=== PATIENT | male | born 1975 | race Caucasian/White ===

== ENCOUNTER 2019-04-16 12:57 | Inpatient (IN) | payer MEDICAID ==
[~2019-04-16] VITALS: Ht 185.4 cm; Wt 120.2 kg
--- NOTE | 2019-04-16 13:29 | NUR ---
PT REPORTS LAST INTAKE OF FOOD 0900 TODAY. PT DRINKING WATER IN TRIAGE. THIS RN ASKED PT TO BECOME NPO UNTIL FURTHER NOTICE.
--- NOTE | 2019-04-16 14:30 | NUR ---
IV SITED WITH BLOOD DRAW INCLUDING BC'S X 2
[2019-04-16 14:36] LABS: BASOPHILS 0.2 % (0-2); EOSINOPHILS 4.9 % (0-7); HEMATOCRIT 40.7 % (42.0-54.0); HEMOGLOBIN 13.6 g/dL (13.5-17.5); IMMATURE GRANULOCYTES 0.2 % (0-5); LYMPHOCYTES 16.1 % (15-50); MCH 29.3 pg (26.0-34.0); MCHC 33.4 g/dL (31.0-37.0); MCV 87.7 fL (80.0-100.0); MEAN PLATELET VOLUME 9.7 fL (7.4-10.4); MONOCYTES 8.8 % (2-11); NEUTROPHILS 69.8 % (40-80); PLATELET COUNT 268 10x3/uL (130-400); RBC 4.64 10x6/uL (4.20-6.10); RDW 13.2 % (11.5-14.5); WBC 12.8 10x3/uL (4.8-10.8)
[2019-04-16 14:45] LABS: INR 1.03 (0.85-1.17)
[2019-04-16 14:54] LABS: ANION GAP 9.1 mmol/L (8-16); CALCIUM 8.4 mg/dL (8.5-10.1); CARBON DIOXIDE 28.3 mmol/L (21.0-32.0); CREATININE - SERUM 1.2 mg/dL (0.6-1.3); POTASSIUM - SERUM 3.4 mmol/L (3.5-5.1)
--- NOTE | 2019-04-16 15:00 | NUR ---
WOUND CX OBTAINED FROM COCCYX ABSCESS, LABELED AT BS AND SENT TO LAB THEN ABXS STARTED
[2019-04-16 15:01] LABS: ALBUMIN 2.9 g/dL (3.4-5.0); BILIRUBIN - TOTAL 0.3 mg/dL (0.2-1.3); PROTEIN - SERUM 7.2 g/dL (6.4-8.2)
[2019-04-16 15:07] LABS: C-REACTIVE PROTEIN 6.6 mg/dL (0.0-0.9); CKMB 0.1 U/L (0.0-3.6); MAGNESIUM - SERUM 1.6 mg/dL (1.8-2.4)
[2019-04-16 15:12] VITALS: BP 130/82
--- NOTE | 2019-04-16 16:00 | NUR ---
DR VICK AT
[2019-04-16 16:16] VITALS: BP 117/66
--- NOTE | 2019-04-16 16:32 | NUR ---
REPORT CALLED TO EDWIN SCHUSTER
--- NOTE | 2019-04-16 17:15 | NUR ---
VANCOMYCIN INFUSION COMPLETED
[2019-04-16 17:20] VITALS: BP 118/64
[2019-04-16 17:28] VITALS: BP 132/71; BMI 35.0
--- NOTE | 2019-04-16 18:01 | NUR ---
NEW PATIENT ADMIT FROM ER TO ROOM 1204. PATIENT TO ROOM VIA WC ACCOMPANIED HOSPITAL STAFF. PATIENT IS AWAKE, ALERT AND ORIENTED X 4. ASSISTED PATIENT TO BED . ADMISSION ASSESSMENT AND HISTORY COMPLETED. PATIENT HAS INFLAMMED PILONIDIAL CYST. ICE PACK APPLIED. 20G IV TO LEFT AC NS INFUSING AT 125 ML. WILL CONTINUE WITH PLAN OF CARE. SR UP X 2 BED IN LOW POSITION AND CALL LIGHT IN REACH.
--- NOTE | 2019-04-16 18:12 | NUR ---
TRANSPORTED TO FLOOR CONDITION STABLE
[2019-04-16 19:32] VITALS: BP 108/53
--- NOTE | 2019-04-16 19:32 | NUR ---
PATIENT RESTING IN BED WITH NO S/S OF DISTRESS AND GUEST AT BEDSIDE. PATIENT DENIES NEEDS AT THIS TIME. VSS. ENCOURAGED THE PATIENT TO CALL IF HE HAS NEEDS. WILL CONTINUE TO MONITOR.
--- NOTE | 2019-04-16 20:19 | NUR ---
PATIENT RESTING IN BED AND REQUESTED PAIN MEDICATION. ADMINISTERED MEDS PER ORDERS. ENCOURAGED THE PATIENT TO CALL IF HE HAS NEEDS. WILL CONTINUE TO MONITOR.
--- NOTE | 2019-04-16 22:19 | NUR ---
ADDED PATIENT TO TELE WAIT LIST. NO MONITORS AVAILABLE AT THIS TIME.
[2019-04-16 23:45] VITALS: BP 103/58
[2019-04-17 03:30] VITALS: BP 110/63
[2019-04-17 06:49] LABS: BASOPHILS 0.3 % (0-2); EOSINOPHILS 6.4 % (0-7); HEMATOCRIT 37.5 % (42.0-54.0); HEMOGLOBIN 12.3 g/dL (13.5-17.5); IMMATURE GRANULOCYTES 0.3 % (0-5); LYMPHOCYTES 21.5 % (15-50); MCH 28.9 pg (26.0-34.0); MCHC 32.8 g/dL (31.0-37.0); MEAN PLATELET VOLUME 9.6 fL (7.4-10.4); MONOCYTES 8.7 % (2-11); NEUTROPHILS 62.8 % (40-80); PLATELET COUNT 227 10x3/uL (130-400); RBC 4.26 10x6/uL (4.20-6.10); RDW 13.3 % (11.5-14.5)
[2019-04-17 07:00] LABS: CALC OSMOLALITY 275 mosm/kg (275-300); CALCIUM 7.5 mg/dL (8.5-10.1); CARBON DIOXIDE 25.8 mmol/L (21.0-32.0); CHLORIDE - SERUM 105 mmol/L (98-107); CREATININE - SERUM 1.1 mg/dL (0.6-1.3); GLUCOSE 92 mg/dL (74-106); MAGNESIUM - SERUM 1.6 mg/dL (1.8-2.4); PHOSPHOROUS 3.4 mg/dL (2.5-4.9); POTASSIUM - SERUM 3.7 mmol/L (3.5-5.1); SODIUM 139 mmol/L (136-145); eGFR NON AFRICAN AMERICAN 78 mL/min (90-120)
[2019-04-17 07:01] LABS: UREA NITROGEN 6 mg/dL (7-18)
[2019-04-17 07:15] VITALS: BP 110/62
--- NOTE | 2019-04-17 07:15 | NUR ---
PT RESTING IN BED, SHIFT ASSESSMENT PERFORMED. VSS AND WNL. DENIES ANY NEEDS AT THIS TIME, WILL CONT TO FOLLOW POC
--- NOTE | 2019-04-17 11:00 | NUR ---
PT COMPLAINING OF PAIN TO COCCYX. PRN MORPHINE GIVEN. PT THEN COMPLAINS THAT MORPHINE IS MAKING HIM FEEL FUNNY AND HE DOES NOT LIKE THE FEELING. PT STATES HE HAS TAKEN ORAL PAIN MEDICATION IN THE PAST AND HAS DONE OK ON IT. PAGED SONIA KERR AND NEW ORDER RECIEVED TO D/C MORPHINE AND GIVE NORCO 5/325MG Q6H FOR PAIN
--- NOTE | 2019-04-17 12:30 | NUR ---
PT RESTING IN BED EATING LUNCH, FAMILY AT BEDSIDE, DENIES ANY NEEDS AT THIS TIME, WILL CONT TO FOLLOW POC
[2019-04-17 13:23] LABS: APPEARANCE CLEAR (CLEAR); BACTERIA FEW /hpf (NEGATIVE); BILIRUBIN NEGATIVE (NEGATIVE); COLOR YELLOW (YELLOW); EPITHELIAL CELLS 0-5 /hpf (0-5); GLUCOSE NEGATIVE (NEGATIVE); KETONE NEGATIVE (NEGATIVE); MUCUS <1+ /lpf (NONE SEEN); NITRITE NEGATIVE (NEGATIVE); PROTEIN NEGATIVE (NEGATIVE); RED CELLS - URINE 0-5 /hpf (0-5); UROBILINOGEN NORMAL (NORMAL); WHITE CELLS - URINE 0-5 /hpf (NEGATIVE)
[2019-04-17 13:24] VITALS: Ht 185.4 cm; Wt 120.2 kg
--- NOTE | 2019-04-17 16:20 | NUR ---
PT RESTING IN BED EATING LUNCH, FAMILY AT BEDSIDE, DENIES ANY NEEDS AT THIS TIME, WILL CONT TO FOLLOW POC
[2019-04-17 18:55] VITALS: BP 103/60
--- NOTE | 2019-04-17 18:55 | NUR ---
PATIENT RESTING IN BED WITH EYES CLOSED AND NO S/S OF DISTRESS. VSS. COMPLETED ASSESSMENT. PATIENT DENIES NEEDS AT THIS TIME. BED IN LOWEST POSITION AND CALL LIGHT WITHIN REACH. ENCOURAGED THE PATIENT TO CALL IF HE HAS NEEDS. WILL CONTINUE TO MONITOR.
--- NOTE | 2019-04-17 20:14 | NUR ---
PATIENT RESTING IN BED WITH NO S/S OF DISTRESS. ADMINISTERED MEDS PER ORDERS. PATIENT DENIES NEEDS. BED IN LOWEST POSITION AND CALL LIGHT WITHIN REACH. ENCOURAGED THE PATIENT TO CALL IF HE HAS NEEDS.
--- NOTE | 2019-04-17 23:03 | NUR ---
RESPONDED TO PATIENT'S CALL LIGHT. PATIENT C/O 9/10 THROBBING PAIN IN HIS HEAD AND PAIN AT SACRUM/COCCYX AREA. ADMINISTERED MEDS PER ORDERS. ALSO GAVE PATIENT JELLO AND A DRINK PER HIS REQUEST. REMINDED PATIENT THAT HE CAN'T HAVE ANYTHING TO EAT OR DRINK AFTER MIDNIGHT. PATIENT VERBALIZED UNDERSTANDING. PATIENT DENIES OTHER NEEDS AT THIS TIME. WILL CONTINUE TO MONITOR.
[2019-04-17 23:05] VITALS: BP 107/69
[2019-04-18 03:38] VITALS: BP 101/63
[2019-04-18 05:57] LABS: BASOPHILS 0.3 % (0-2); EOSINOPHILS 4.5 % (0-7); HEMATOCRIT 35.9 % (42.0-54.0); HEMOGLOBIN 11.7 g/dL (13.5-17.5); IMMATURE GRANULOCYTES 0.3 % (0-5); LYMPHOCYTES 22.2 % (15-50); MCH 28.5 pg (26.0-34.0); MCHC 32.6 g/dL (31.0-37.0); MCV 87.6 fL (80.0-100.0); MEAN PLATELET VOLUME 9.8 fL (7.4-10.4); MONOCYTES 8.2 % (2-11); NEUTROPHILS 64.5 % (40-80); PLATELET COUNT 267 10x3/uL (130-400); RDW 13.1 % (11.5-14.5); WBC 10.5 10x3/uL (4.8-10.8)
[2019-04-18 06:47] LABS: CALC OSMOLALITY 279 mosm/kg (275-300); CALCIUM 7.5 mg/dL (8.5-10.1); CARBON DIOXIDE 27.1 mmol/L (21.0-32.0); CHLORIDE - SERUM 107 mmol/L (98-107); GLUCOSE 88 mg/dL (74-106); MAGNESIUM - SERUM 1.8 mg/dL (1.8-2.4); POTASSIUM - SERUM 3.5 mmol/L (3.5-5.1); SODIUM 142 mmol/L (136-145); UREA NITROGEN 6 mg/dL (7-18); VANCOMYCIN - TROUGH 23.7 ug/mL (10.0-20.0); eGFR NON AFRICAN AMERICAN 87 mL/min (90-120)
--- NOTE | 2019-04-18 07:15 | NUR ---
PT RESTING IN BED, SHIFT ASSESSMENT PERFORMED. VSS AND WNL. DENIES ANY NEEDS AT THIS TIME. WILL CONT TO FOLLOW POC
[2019-04-18 07:34] VITALS: BP 109/69
--- NOTE | 2019-04-18 09:31 | MORECARE ---
CASE MANAGEMENT DISCHARGE SUMMARY PATIENT: BENITEZ BURNS UNIT: [id number] ADM DATE: 04/16/19 AGE: 44 : [birth year] SEX: M ROOM/BED: D.1204 AUTHOR: TIFFANY LUCIO PHYSICIAN: REFERRING PHYSICIAN: ROVERTO VICK MD DATE OF SERVICE: 04/18/19 Discharge Plan Patient Name: BENITEZ BURNS [facility] : 1975 Planned Disposition: Anticipated Discharge Date: Discharge Date: Expected LOS: Initial Reviewer: [email or web address] Initial Review Date: 04/18/2019 Generated: 04/18/19 10:31 am Patient Name: BENITEZ BURNS Page 20415 at 0931 All edits/amendments must be made on the electronic document DICTATION DATE: 04/18/19930 SUPERVISOR WHIPPED TOPPING: SHANNAN 04/18/19930 RPT#: [id number] DC DATE: STATUS: ADM IN [facility] [address] [place] [address] END OF REPORT
--- NOTE | 2019-04-18 09:32 | NUR ---
PT LEFT FOR SURGERY
[2019-04-18 11:44] VITALS: BP 92/54
--- NOTE | 2019-04-18 11:45 | NUR ---
PT RETURNED FROM SURGERY. VSS AND WNL. PT ALERT AND ANSWERING QUESTIONS. WILL CONT TO FOLLOW POC
--- NOTE | 2019-04-18 12:00 | NUR ---
PT RESTING IN BED, VSS AND WNL. DENIES ANY NEEDS AT THIS TIME, CALL LIGHT WITHIN REACH. WILL CONT TO FOLLOW POC
--- NOTE | 2019-04-18 12:15 | NUR ---
PT RESTING IN BED, VSS AND WNL. DENIES ANY NEEDS AT THIS TIME, WILL CONT TO FOLLOW POC
--- NOTE | 2019-04-18 12:30 | NUR ---
PT RESTING IN BED, VSS AND WNL. DENIES ANY NEEDS AT THIS TIME, WILL CONT TO FOLLOW POC
--- NOTE | 2019-04-18 12:56 | OP ---
PATIENT NAME: BENITEZ BURNS MEDICAL RECORD: [id number] :[birth year] LOCATION:D.M3 D.1204 ADMISSION DATE:04/16/19 SURGEON: MICHEL BLOOM MD DATE OF OPERATION: 04/18/2019 SURGEON: Michel Bloom MD PREOPERATIVE DIAGNOSIS: Pilonidal cyst with abscess. POSTOPERATIVE DIAGNOSIS: Pilonidal cyst with abscess. PROCEDURE PERFORMED: Incision and drainage of complex multiloculated pilonidal abscess 10 x 6 x 5 cm. ANESTHESIA: General. COMPLICATIONS: None. SPECIMENS: Culture Gram stain. Case was grossly contaminated. ESTIMATED BLOOD LOSS: 30 cc. OPERATIVE COURSE: After consent was obtained, the patient was taken to the operating room, at which time general anesthesia was given. A timeout was taken to confirm the correct patient and procedure. The patient was then transferred to the operating table in the jackknife prone position. The lower back and perineum were prepped and draped in typical sterile fashion. The patient had pilonidal disease. He had an actively draining wound with several small openings in the intergluteal cleft. The intergluteal cleft was opened with a 15-blade scalpel, approximately 80 cc of pus within the cavity. Anaerobic and aerobic cultures were obtained. Culture obtained for Gram stain culture and sensitivity. The skin incision was extended to better facilitate drainage and irrigation of the abscess cavity. The abscess cavity was a total of 10 cm in length, 6 cm in width, and 5 cm in depth. The wound was copiously irrigated with saline until clean. It was then irrigated with hydrogen peroxide. The wound was then packed with iodoform gauze. At the end of the case, all needle and instrument counts were correct. No complications occurred. The patient was extubated and transferred to the PACU in stable condition. TRANSINT:[id number] Voice Confirmation ID: [id number] DOCUMENT ID: [id number] MICHEL BLOOM MD at 1256 CC: [id number] DICTATION DATE: 04/18/19 1050 TERRITORY SERVICE REPRESENTATIVE: 04/18/19 1101 ADM IN [facility] [id number] [place] [address]
--- NOTE | 2019-04-18 13:00 | NUR ---
PT RESTING IN BED, FAMILY AT BEDSIDE. KENYA ANY NEEDS AT THIS TIME, WILL CONT TO FOLLOW POC
--- NOTE | 2019-04-18 13:30 | NUR ---
PT CALLED FOR NURSE AND STATES HE FEELS LIKE SOMEONE IS HOLDING HIM DOWN AND HE IS ABOUT TO SCREAM. VSS AND LUNGS ARE CLEAR TO AUSCULTATION. NOTIFIED SONIA KERR. ADVISED PT TO TRY AND RELAX UNTIL ORDERS ARE RECIEVED
--- NOTE | 2019-04-18 14:03 | NUR ---
XRAY HERE FOR CHEST XRAY. PT WAS ABLE TO LAY ON BACK FOR CHEST XRAY. PRN NORCO GIVEN ONCE XRAY WAS FINISHED. PT IS REMAINING CALM BUT STILL REPORTS PRESSURE TO CHEST
--- NOTE | 2019-04-18 14:25 | MORECARE ---
CASE MANAGEMENT DISCHARGE SUMMARY PATIENT: BENITEZ BURNS UNIT: [id number] ADM DATE: 04/16/19 AGE: 44 : 79 SEX: M ROOM/BED: D.1204 AUTHOR: NAVEED,DOC PHYSICIAN: REFERRING PHYSICIAN: ROVERTO VICK MD DATE OF SERVICE: 04/18/19 Discharge Plan Patient Name: BENITEZ BURNS Facility: [facility]:[place] : 1975 Planned Disposition: Anticipated Discharge Date: Discharge Date: Expected LOS: Initial Reviewer: [email or web address] Initial Review Date: 04/18/2019 Generated: 04/18/19 3:25 pm Comments DCP- Discharge Planning Updated by [email or web address]: Sabina Pavon on 04/18/19 1:[address] Patient Name: BENITEZ BURNS Admission Status: Elective Accout number: [id number] Admission Date: 04-16-2019 : 1975 Admission Diagnosis: Attending: ROVERTO VICK Current LOS: 2 Anticipated DC Date: Planned Disposition: Primary Insurance: MEDICAID [place] PENDING Discharge Planning Comments: CM MET WITH PATIENT AFTER OBTAINING VERBAL CONSENT. STATES PLANS TO DISCHARGE TO HOME WITH FAMILY. IF HOME HEALTH IS NEEDED [facility] WAS SIGNED. MAY NEED WOUND CARE FOR HOME DC. CM WILL FOLLOW AND ASSIST. Practice Professional: Sabina Pavon Appended by Sabina Pavon on 04/18/2019 14:24 CDT: I SPOKE WITH RAY AT [facility] AND HE SAID THEY SHOULD BE ABLE TO TAKE PATIENT, CM WILL SEND REFERRAL IF NEEDED. DCPIA - Discharge Planning Initial Assessment Updated by [email or web address]: Sabina Pavon on 04/18/19 2:21 pm * Is the patient Alert and Oriented? Yes * PCP DOESN'T REMEMBER THE NAME * Pharmacy [facility] * Preadmission Environment Home with Family * ADLs Independent * Other Equipment NEBS * List name and contact numbers for known caregivers / representatives who currently or will assist patient after discharge: FLORENCE MENSAH. [phone] * Additional services required to return to the preadmission environment? Yes * Can the patient safely return to the preadmission environment? Yes * Has this patient been hospitalized within the prior 30 days at any hospital? No Coverage Notice Reviewer: [id number] [place] Pavon Notice Issued Date-Time: 04/18/2019 14:24 Notice Type: Patient Choice Letter Notice Delivered To: Patient Relationship to Patient: Plant Attendant Or Assistant Operator Name: Delivery Method: HAND - Hand Delivered Cris Days: Prior Verbal Notification: Recipient Understood Notice: Yes Recipient Signature: Yes Med Rec Note Co-signed by Attending: Coverage Notice Comment: Last DP export: 04/18/19 8:31 Patient Name: BENITEZ BURNS Page [id number] at 1425 All edits/amendments must be made on the electronic document DICTATION DATE: 04/18/191423 PHP MAGENTO DEVELOPER: SHANNAN 04/18/191423 RPT#: [id number] [place] DATE: STATUS: ADM IN [facility] [address] [place] [address] END OF REPORT
--- NOTE | 2019-04-18 15:00 | NUR ---
PT RESTING IN BED, CALM AND SLEEPING AT THIS TIME. WILL CONT TO FOLLOW POC
[2019-04-18 15:28] VITALS: BP 101/64
[2019-04-18 16:58] LABS: CKMB 0.9 U/L (0.0-3.6); CREATINE KINASE 410 UL (21-232)
[2019-04-18 16:59] LABS: TROPONIN-I < 0.017 ng/mL (0.000-0.060)
--- NOTE | 2019-04-18 17:53 | NUR ---
PT LAYING IN BED ASLEEP. WILL CONT TO FOLLOW POC
[2019-04-18 19:00] VITALS: BP 96/61
--- NOTE | 2019-04-18 19:17 | NUR ---
EVENING ROUNDS COMPLETED. VSS, AAOX3, NO S/S OF DISTRESS. SPOUSE AT BEDSIDE. KETOROLAC IV ORDERED AT THIS TIME. PT STATE HE WANTS TO WAIT FOR A WHILE BEFORE HE TAKES IT. PT DENIES ANY PAIN AT THIS TIME. WILL CPOC. CL WITHIBN REACH, BED IN LOW, SR UP X2.
[2019-04-18 23:02] LABS: CKMB 0.9 U/L (0.0-3.6); CREATINE KINASE 341 UL (21-232); TROPONIN-I < 0.017 ng/mL (0.000-0.060)
[2019-04-19] VITALS (7 sets, daily range): BP systolic 93–130; BP diastolic 59–93
[2019-04-19 06:32] LABS: BASOPHILS 0.4 % (0-2); HEMATOCRIT 35.2 % (42.0-54.0); HEMOGLOBIN 11.5 g/dL (13.5-17.5); IMMATURE GRANULOCYTES 0.3 % (0-5); LYMPHOCYTES 29.1 % (15-50); MCHC 32.7 g/dL (31.0-37.0); MCV 88.7 fL (80.0-100.0); MEAN PLATELET VOLUME 10.1 fL (7.4-10.4); MONOCYTES 8.5 % (2-11); NEUTROPHILS 52.7 % (40-80); PLATELET COUNT 272 10x3/uL (130-400); RBC 3.97 10x6/uL (4.20-6.10); RDW 13.1 % (11.5-14.5)
[2019-04-19 07:05] LABS: CALC OSMOLALITY 282 mosm/kg (275-300); CALCIUM 7.9 mg/dL (8.5-10.1); CHLORIDE - SERUM 108 mmol/L (98-107); CKMB 0.6 U/L (0.0-3.6); CREATINE KINASE 303 UL (21-232); GLUCOSE 95 mg/dL (74-106); MAGNESIUM - SERUM 2.2 mg/dL (1.8-2.4); POTASSIUM - SERUM 3.4 mmol/L (3.5-5.1); SODIUM 143 mmol/L (136-145); TROPONIN-I < 0.017 ng/mL (0.000-0.060); UREA NITROGEN 7 mg/dL (7-18); eGFR NON AFRICAN AMERICAN 87 mL/min (90-120)
--- NOTE | 2019-04-19 07:33 | NUR ---
PT RESTING IN BED, SHIFT ASSESSMENT PERFORMED. VSS AND WNL. DENIES ANY NEEDS AT THIS TIME, WILL CONT TO FOLLOW POC
--- NOTE | 2019-04-19 07:54 | NUR ---
NUTRITION F/U CHART REVIEWED, REG DIET RESUMED. 100% INTAKE RECENT MEALS. WILL HONOR FOOD PREFERENCES, MONITOR PO INTAKE AND PT PROGRESS. RD FOLLOWING
--- NOTE | 2019-04-19 12:15 | NUR ---
PT RESTING IN BED EATING LUNCH. DENIES ANY NEEDS AT THIS TIME, CALL LIGHT WITHIN REACH. WILL CONT TO FOLLOW POC
--- NOTE | 2019-04-19 17:27 | NUR ---
WOUND CARE PROVIDED ORDERED TO COCCYX. PT TOLERATED OK. PT REQUIRED FREQUENT BREAKS DURING REMOVAL OF PACKING AND REPACKING TO WOUND. DENIES ANY FURTHER NEEDS AT THIS TIME, WILL CONT TO FOLLOW POC
--- NOTE | 2019-04-19 19:40 | NUR ---
LYING PRONE IN BED. C/O PAIN IN SACRAL REGION 7. NOT TIME FOR PAIN MED YET. ALERT AND ORIENTED X4. IRRITABLE. RESP EVEN AND NONLABORED. DRSG C/D/I TO SACRAL REGION. AMBULATORY. NS @ 125 ML/HR INFUSING IN LT AC WITHOUT DIFF. SR ELEVATED X2. CL IN REACH.
--- NOTE | 2019-04-19 21:40 | NUR ---
MEDICATED WITH NORCO FOR C/O SACRAL PAIN. CL IN REACH.
--- NOTE | 2019-04-20 02:56 | NUR ---
REQUESTS NOT TO BE AWAKENED FOR 0400 V/S. HASNT SLEPT MUCH TONIGHT
[2019-04-20 05:49] LABS: BASOPHILS 0.4 % (0-2); EOSINOPHILS 10.1 % (0-7); HEMATOCRIT 33.7 % (42.0-54.0); HEMOGLOBIN 10.9 g/dL (13.5-17.5); IMMATURE GRANULOCYTES 0.1 % (0-5); LYMPHOCYTES 35.9 % (15-50); MCH 28.4 pg (26.0-34.0); MCHC 32.3 g/dL (31.0-37.0); MCV 87.8 fL (80.0-100.0); MEAN PLATELET VOLUME 9.8 fL (7.4-10.4); NEUTROPHILS 45.5 % (40-80); PLATELET COUNT 291 10x3/uL (130-400); RBC 3.84 10x6/uL (4.20-6.10); RDW 12.9 % (11.5-14.5)
[2019-04-20 06:14] LABS: CALC OSMOLALITY 282 mosm/kg (275-300); CALCIUM 7.4 mg/dL (8.5-10.1); CARBON DIOXIDE 25.6 mmol/L (21.0-32.0); CHLORIDE - SERUM 110 mmol/L (98-107); GLUCOSE 80 mg/dL (74-106); MAGNESIUM - SERUM 1.9 mg/dL (1.8-2.4); POTASSIUM - SERUM 3.6 mmol/L (3.5-5.1); SODIUM 144 mmol/L (136-145); eGFR NON AFRICAN AMERICAN 87 mL/min (90-120)
[2019-04-20 06:15] LABS: UREA NITROGEN 5 mg/dL (7-18)
[2019-04-20] MEDS ORDERED: SULFAMETHOXAZOL1 TA2 PO (09:25)
[2019-04-20] MEDS ORDERED: HYDROCODON-ACE1 EAC7 PO (09:26)
[2019-04-20 09:30] VITALS: BP 98/55
[2019-04-20] MEDS ORDERED: DOXYCYCLINE HY100 M2 PO (10:56)
[2019-04-20 12:14] VITALS: BP 106/63
--- NOTE | 2019-04-20 15:58 | NUR ---
PACKING REMOVED FROM COCCYX INCISION. PACKED WOUND WITH NS MOISTENED KERLIX AND COVERED WITH DRY 4X4'S AND TAPE.
--- NOTE | 2019-04-20 17:15 | NUR ---
WHEELED PT OUT IN WC AND PT LEFT WITH FRIEND IN FRIEND'S PERSONAL VEHICLE.
--- NOTE | 2019-04-20 17:40 | MORECARE ---
CASE MANAGEMENT DISCHARGE SUMMARY PATIENT: BENITEZ BURNS UNIT: [id number] ADM DATE: 04/16/19 AGE: 44 : 79 SEX: M ROOM/BED: D.1204 AUTHOR: NAVEED,DOC PHYSICIAN: REFERRING PHYSICIAN: ROVERTO VICK MD DATE OF SERVICE: 04/20/19 Discharge Plan Patient Name: BENITEZ BURNS Facility: [facility]:[place] : 1975 Planned Disposition: Home with Home Health Anticipated Discharge Date: Discharge Date: 04/20/2019 Expected LOS: Initial Reviewer: [email or web address] Initial Review Date: 04/18/2019 Generated: 04/20/19 6:39 pm Comments DCP- Discharge Planning Updated by [email or web address]: Jaimie Pereira on 04/20/19 4:[address] CM spoke with patient to see if he had a home care music therapist or someone Home Health could teach to do dressing changes. Patient stated that his mother might could but she has a bad back. CALEB explained that in order for HH to come out there would need to be a teachable caregiver. CM explained that the other option would be for him to come to outpatient daily for dressing changes. He stated that he didn't have transportation to come to hospital daily. CALEB spoke with Cory with [facility] this am and gave him paperwork on patient. CALEB explained that patient doesn't have insurance but has Medicaid pending. Cory agreed to send paperwork to office and check to see if they would be able to accept patient. CALEB called Cory back @ 1400. He still didn't have any word on acceptance yet. Cory called back at 1530 and stated that they could start seeing patient tomorrow and they would allow 10 visits since Medicaid is pending. Patient has to have caregiver to be taught dressing changes. CALEB went and spoke with patient and explained what [facility] had agreed to. Patient thinks wound should be healed within 10 days. CM will continue to follow and assist as needed with discharge planning / needs. DCP- Discharge Planning Updated by [id number]: Sabina Pavon on 04/18/19 1:[address] Patient Name: BENITEZ BURNS Admission Status: Elective Accout number: [id number] Admission Date: 04-16-2019 : 1975 Admission Diagnosis: Attending: ROVERTO VICK Current LOS: 2 Anticipated DC Date: Planned Disposition: Primary Insurance: MEDICAID [place] PENDING Discharge Planning Comments: CM MET WITH PATIENT AFTER OBTAINING VERBAL CONSENT. STATES PLANS TO DISCHARGE TO HOME WITH FAMILY. IF HOME HEALTH IS NEEDED [facility] WAS SIGNED. MAY NEED WOUND CARE FOR HOME DC. CM WILL FOLLOW AND ASSIST. Helper Shear Operator: Sabina Pavon Appended by Sabina Pavon on 04/18/2019 14:24 CDT: I SPOKE WITH RAY AT [facility] AND HE SAID THEY SHOULD BE ABLE TO TAKE PATIENT, CM WILL SEND REFERRAL IF NEEDED. DCPIA - Discharge Planning Initial Assessment Updated by [email or web address]: Sabina Pavon on 04/18/19 2:21 pm * Is the patient Alert and Oriented? Yes * PCP DOESN'T REMEMBER THE NAME * Pharmacy [facility] * Preadmission Environment Home with Family * ADLs Independent * Other Equipment NEBS * List name and contact numbers for known caregivers / representatives who currently or will assist patient after discharge: FLORENCE MENSAH. [phone] * Additional services required to return to the preadmission environment? Yes * Can the patient safely return to the preadmission environment? Yes * Has this patient been hospitalized within the prior 30 days at any hospital? No Coverage Notice Reviewer: [id number] - Sabina Pavon Notice Issued Date-Time: 04/18/2019 14:24 Notice Type: Patient Choice Letter Notice Delivered To: Patient Relationship to Patient: Hydrographic Engineer Name: Delivery Method: HAND - Hand Delivered Cris Days: Prior Verbal Notification: Recipient Understood Notice: Yes Recipient Signature: Yes Med Rec Note Co-signed by Attending: Coverage Notice Comment: Last DP export: 04/18/19 1:25 Patient Name: BENITEZ BURNS Page 54035 at 1740 All edits/amendments must be made on the electronic document DICTATION DATE: 04/20/191738 CANAL TENDER: SHANNAN 04/20/191738 RPT#: [id number] DC DATE:04/20/19 STATUS: DIS IN [facility] [address] [place] [address] END OF REPORT
== END 2019-04-20 17:15 | disposition home health service (06) | DRG 871 ==
LOC: D.ER 12:57 → D.M3 15:51
PROVIDERS: Family Medicine; Surgery; ADMIT Internal Medicine Nephrology; ATTEND Internal Medicine Nephrology
PROC: 0H98XZZ Drainage of Buttock Skin, External Approach (ICD-10-PCS; principal; 2019-04-18 10:30)
DX: A41.9 Sepsis, unspecified organism (principal); J18.9 Pneumonia, unspecified organism; F17.213 Nicotine dependence, cigarettes, with withdrawal; L05.01 Pilonidal cyst with abscess; E87.6 Hypokalemia; E83.42 Hypomagnesemia; D64.9 Anemia, unspecified; I10 Essential (primary) hypertension